=== PATIENT | male | born 1940 | race Caucasian/White ===

== ENCOUNTER 2017-08-30 17:55 | Inpatient (IN) | payer OTHER, BC ==
[2017-08-30] VITALS (12 sets, daily range): BP systolic 77–100; BP diastolic 49–76
[~2017-08-30] VITALS: Ht 185.4 cm; Wt 89.7 kg
--- NOTE | ~2017-08-30 | 2DMMODE ---
[address] [address] 2 D/M-MODE ECHOCARDIOGRAM Name: FRIDA RICHARDS Dre Room #: 244-P ADM IN M.R.#: [id number] Admission: 08/30/17 Attend Phys: Shant Walker, Discharge: Date of : 42 Date of Service: 09/01/17 1231 Report #: [id number] THIS REPORT FOR: //name// APPROVED REPORT Study performed: 09/01/2017 08:05:46 EXAM: Limited 2D, Doppler Patient Location: ICU Room #: [facility] Status: routine BSA: 2.21 BP: 96/60 mmHg Other Information Study Quality: Adequate Technically limited study due to inability to position patient. Indications Pericardial Effusion Re-evaluate pericardial effusion, previous echo 08/31/2017 2D Dimensions IVC: 29.00 mm Left Ventricle The left ventricle is normal size. There is normal left ventricular wall thickness. The left ventricular systolic function is normal. The left ventricular ejection fraction is within the normal range. Right Ventricle The right ventricle is normal size. The right ventricular systolic function is normal. Atria Left atrium is mildly dilated. Right atrium is mildly dilated. Aortic Valve Aortic valve appears calcified. Mild aortic stenosis. Mitral Valve The mitral valve is normal in structure. [address] [address] 2 D/M-MODE ECHOCARDIOGRAM Name: FRIDA RICHARDS Room #: 244-P ADM IN M.R.#: [id number] Admission: 08/30/17 Attend Phys: Shant Walker, Discharge: Date of : 42 Date of Service: 09/01/17 1231 Report #: [id number] Tricuspid Valve The tricuspid valve is normal in structure. Pulmonic Valve The pulmonary valve is normal in structure. Great Vessels The aortic root is normal in size. The IVC is dilated. Pericardium There is no pericardial effusion. Pleural effusion is noted. <Conclusion> The left ventricular systolic function is normal. The left ventricular ejection fraction is within the normal range. Left atrium is mildly dilated. Right atrium is mildly dilated. Mild aortic stenosis. There is no pericardial effusion. Pleural effusion is noted. <ELECTRONICALLY SIGNED> By: Nickolas Quevedo MD, FACC 09/01/17 123 123 30 Nickolas Quevedo MD, FACC /INF
--- NOTE | ~2017-08-30 | EKG ---
[address] [address] ELECTROCARDIOGRAM REPORT Name: MAURICECHARLENEMartha Erickson Room #: 244-P ADM IN M.R.#: [id number] Admission: 08/30/17 Attend Phys: Shant Walker DO Discharge: Date of : 42 Report #: [id number] THIS REPORT FOR: //name// [facility] Test Date: 2017-09-14 Test Time: 05:50:20 Pat Name: FRIDA RICHARDS Department: Room: 244 P Gender: M Manager Surgery: JONATAN : 1940 Requested By: Nickolas Quevedo Order Number: [id number] MD: Quinton He Measurements Intervals Brooks Rate: 88 P: [place]: QRS: 73 QRSD: 115 T: 267 QT: 329 QTc: 398 Interpretive Statements Atrial fibrillation Incomplete right bundle branch block Low voltage, extremity leads Nonspecific T abnormalities, lateral leads Baseline wander in lead(s) V2 Compared to ECG 09/13/2017 06:17:15 Incomplete right bundle-branch block now present Low QRS voltage now present T-wave abnormality now present Intraventricular conduction delay no longer present Myocardial infarct finding no longer present Electronically Signed On 09-14-2017 8:18:59 DOOR ASSEMBLER by Quinton He [email or web address] <ELECTRONICALLY SIGNED> By: Quinton He MD 09/14/17817 0550 0550 Quinton He MD /EPI
--- NOTE | ~2017-08-30 | O ---
[facility] [place] [address] OPERATIVE REPORT Name: FRIDA RICHARDS Room #: 217-P [facility] IN ..#: [id number] Admission: 08/30/17 Attend Phys: Shant Walker DO Discharge: 09/19/17 Date of : 42 Report #: [id number] THIS REPORT FOR: //name// CC: Shant Aponte DATE OF SERVICE: 08/31/2017 PREOPERATIVE DIAGNOSIS: Pericardial effusion. FINAL DIAGNOSIS: Pericardial effusion, large. OPERATIVE PROCEDURE PERFORMED: Percutaneous pericardial drain placement. SURGEON: Jefferson Velazquez M.D. ICE CREAM MIXER: None. ANESTHESIA: Local 1% lidocaine without epinephrine, 10 mL. SPECIMENS REMOVED: Pericardial fluid approximately 300 mL. COMPLICATIONS: None noted. OPERATIVE INDICATIONS: The patient is a very pleasant elderly gentleman in his 70s who was transferred over from the hospital in [facility], with a large pericardial effusion. There were concerns of tamponade. The patient is very sick with multiple illnesses, elevated INR. He was felt to be of high operative risk. Therefore, we decided to perform a percutaneous drain placement in the ICU. PROCEDURE SUMMARY: With the patient lying supine in the ICU bed, his abdomen was prepped and draped in sterile fashion with chlorhexidine. I first numbed up the skin and subcutaneous tissues and the upper abdominal wall in the midline. I then used a needle directed to the left-sided nipple at an angle of 45 degrees and aspirated dark fluid that was non-clotting. I placed a J-wire through this, dilated this tract and then placed a triple-lumen catheter into the pericardial space. I immediately removed 300 mL of fluid utilizing a syringe. The patient's blood pressure improved to 110/70 after removal of the fluid. Heart rate also decreased from the 90s to the low 80s. The drain was sutured to the skin and placed to a vacuum system. Sterile dressing was applied. The procedure was completed. The patient was maintained in the ICU. <ELECTRONICALLY SIGNED> By: Jefferson Velazquez MD 01/04/18 0630 1245 1301 Jefferson Velazquez MD /nt
--- NOTE | ~2017-08-30 | O ---
[facility] [place] [address] OPERATIVE REPORT Name: FRIDA RICHARDS Room #: 217-P DIS IN M.R.#: [id number] Admission: 08/30/17 Attend Phys: Shant Walker DO Discharge: 09/19/17 Date of : 42 Report #: [id number] THIS REPORT FOR: //name// CC: Shant Aponte DATE OF SERVICE: 08/31/2017 ADDENDUM This is a note that had been prior dictated, it is dictation #[id number]. The date of service is 08/31/2017, not 09/27. <ELECTRONICALLY SIGNED> By: Jefferson Velazquez MD 01/04/18 0630 1612 1644 Jefferson Velazquez MD /nt
--- NOTE | ~2017-08-30 | 2DMMODE ---
[facility] [address] [place] [address] 2 D/M-MODE ECHOCARDIOGRAM Name: MAURICEFRIDA W Room #: 244-P [facility] IN ..#: [id number] Admission: 08/30/17 Attend Phys: Shant Walker, Discharge: Date of : 42 Date of Service: 08/31/17 1239 Report #: [id number] THIS REPORT FOR: //name// APPROVED REPORT Study performed: 08/31/2017 11:18:55 EXAM: Comprehensive 2D, Doppler, and color-flow Echocardiogram Patient Location: ICU Room #: [facility] Status: stat BSA: 2.21 HR: 91 bpm BP: 88/58 mmHg Other Information Study Quality: Adequate Indications Dyspnea Pericardial Effusion 2D Dimensions LVOT Diam: 19.63 (18-24mm) Ascending Ao: 35.70 (22-36mm) IVC: 25.00 mm Pulmonary Valve PV Peak Filemon.: 0.79 m/s PV Peak Gr.: 2.50 mmHg Tricuspid Valve TR Peak Filemon.: 3.09 m/s TR Peak Gr.: 38.24 mmHg PA Pressure: 48.00 mmHg Left Ventricle The left ventricle is normal size. There is normal left ventricular wall thickness. Left ventricular systolic function is hyperdynamic. LVEF is >70%. Grade I - abnormal relaxation pattern. Right Ventricle Right ventricle is at the upper limits of normal. The right ventricle is hyperdynamic. Atria [facility] [address] [place] [address] 2 D/M-MODE ECHOCARDIOGRAM Name: FRIDA RICHARDS Room #: 244-P [facility] IN M.R.#: [id number] Admission: 08/30/17 Attend Phys: Shant Walker, Discharge: Date of : 42 Date of Service: 08/31/17 1239 Report #: [id number] Left atrium is at the upper limits of normal. Right atrium is dilated. Aortic Valve The aortic valve is normal in structure. Aortic valve is calcified. No aortic regurgitation is present. Mild aortic stenosis. Mitral Valve The mitral valve is normal in structure. There is mitral annular calcification. There is no mitral valve regurgitation noted. No evidence of mitral valve stenosis. Tricuspid Valve The tricuspid valve is normal in structure. There is mild tricuspid regurgitation. Estimated PAP 48 mmHg. There is moderate pulmonary hypertension. Pulmonic Valve The pulmonary valve is normal in structure. There is no pulmonic valvular regurgitation. Great Vessels The aortic root is normal in size. IVC is dilated and collapses <50% with inspiration. Pericardium Moderate to large No echo indications of pericardial tamponade. circumferential pericardial effusion. <Conclusion> The left ventricle is normal size. Left ventricular systolic function is hyperdynamic. LVEF is >70%. Right ventricle is at the upper limits of normal. The right ventricle is hyperdynamic. Left atrium is at the upper limits of normal. Right atrium is dilated. The aortic valve is normal in structure. Aortic valve is calcified. Mild aortic stenosis. The mitral valve is normal in structure. There is mitral annular calcification. The tricuspid valve is normal in structure. There is mild tricuspid regurgitation. Estimated PAP 48 mmHg. There is moderate pulmonary hypertension. The pulmonary valve is normal in structure. [facility] [address] [place] [address] 2 D/M-MODE ECHOCARDIOGRAM Name: FRIDA RICHARDS Room #: [facility] IN M.R.#: [id number] Admission: 08/30/17 Attend Phys: Shant Walker, Discharge: Date of : 42 Date of Service: 08/31/17 1239 Report #: [id number] Moderate to large No echo indications of pericardial tamponade. circumferential pericardial effusion. <ELECTRONICALLY SIGNED> By: Murray Grande MD 08/31/17 1239 1239 123 Murray Grande MD /INF
--- NOTE | ~2017-08-30 | S ---
[facility] [place] [place] [address] SURGICAL PATH RPT PROCEDURE Name: JEF RICHARDS Room #: 244-P ADM IN M.R.#: [id number] Admission: 08/30/17 Date of : 42 Discharge: Report #: [id number] Path Case #: [id number] PATHOLOGY REPORT COLLECTION DATE: 09/09/2017 RECEIVED DATE: 09/09/2017 SUBMITTING PHYS: Dr. Yeyo Salgado OTHER PHYS: Dr. Reagan Walker ADDENDUM REPORT (Order Date: 09/13/2017 10:48) ADDENDUM COMMENT: Addendum is issued subsequently revealing well-controlled stains. Block A1 Special stain GMS - No definite fungal elements identified. *CMV immunohistochemical stain - No definite CMV identified. *HSV1 immunohistochemical stain - No definite herpes identified. The originally rendered diagnosis remains unchanged. (IUV:mml; 09/13/2017) *This test was developed and its performance characteristics determined by [facility]. It has not been cleared or approved by the U.S. Food and Drug Administration. The FDA has determined that such clearance or approval is not necessary. This test is used for clinical purposes. It should not be regarded as investigational or for research. This laboratory is certified under the Clinical Laboratory Improvement Amendments of 1988 (CLIA) as qualified to perform high complexity clinical laboratory testing. Professional services performed by [facility] at [facility] [address] [place] [address] Technical services performed by [facility] at [address] [place] [address], [address] [place] [address]. ELECTRONICALLY SIGNED BY: Genie Gonzalez M.D. DATE/TIME:09/13/2017 11:00 SPECIMEN(S) RECEIVED: A.Bx of esophageal ulcer * * * * * * * * * * * * FINAL DIAGNOSIS: [address] [address] SURGICAL PATH RPT PROCEDURE Name: JEF RICHRADS Room #: 244-P [facility] IN [facility]#: [id number] Admission: 08/30/17 Date of : 42 Discharge: Report #: [id number] Path Case #: [id number] Squamous mucosa, esophageal ulcer, endoscopic biopsy: - Marked active esophagitis with extensive ulceration and granulation tissue. - Negative for malignancy. COMMENT: Immunohistochemical stains (for CMV and HSV 1) as well as a fungal special stain are ordered on block A1. The results of these will be reported in an addendum to follow. (IUV:db; 09/12/2017) *This test was developed and its performance characteristics determined by [facility]. It has not been cleared or approved by the U.S. Food and Drug Administration. The FDA has determined that such clearance or approval is not necessary. This test is used for clinical purposes. It should not be regarded as investigational or for research. This laboratory is certified under the Clinical Laboratory Improvement Amendments of 1988 (CLIA) as qualified to perform high complexity clinical laboratory testing. PATHOLOGIST: Genie Gonzalez M.D. REPORT ELECTRONICALLY SIGNED BY: Genie Gonzalez M.D. DATE/TIME: 09/12/2017 14:01 * * * * * * * * * * * * GROSS PATHOLOGY: Received in formalin labeled "Jef Richards, BX of esophageal ulcer," are multiple (more than 5) segments of allen soft tissue measuring 1.3 x 0.6 x 0.2 cm in aggregate dimensions. The specimen is submitted entirely in cassette A1. (SDY; 09/09/2017) CLINICAL HISTORY: Anemia, melena Esophageal ulcers INITIAL CPT CODE(S): A; 58217, 72289, 68601, 46690 Professional services performed by [facility] at [address] , [place] [address] Technical services performed by [facility] at [address] [place] [address], [place] [address]. [facility] [address] [place] [address] SURGICAL PATH RPT PROCEDURE Name: JEF RICHARDS Room #: 244-P [facility] IN .R.#: [id number] Admission: 08/30/17 Date of : 42 Discharge: Report #: [id number] Path Case #: [id number] [facility] [address] [address] PHONE: [phone] DIRECTOR: Javier Farooq M.D. * * * END OF REPORT * * *
--- NOTE | ~2017-08-30 | EKG ---
[address] [address] ELECTROCARDIOGRAM REPORT Name: FRIDA RICHARDS Room #: 244-P ADM IN M.R.#: [id number] Admission: 08/30/17 Attend Phys: Shant Walker DO Discharge: Date of : 42 Report #: [id number] THIS REPORT FOR: //name// [facility] Test Date: 2017-09-13 Test Time: 06:17:15 Pat Name: FRIDA RICHARDS Department: Room: 244 P Gender: M Motor Vehicle Parts Interpreter: JONATAN : 1940 Requested By: Nickolas Quevedo Order Number: [id number] MD: Bola Hansen Measurements Intervals Wilkinson Rate: 93 P: [place]: QRS: 91 QRSD: 118 T: -88 QT: 470 QTc: 585 Interpretive Statements Atrial fibrillation Nonspecific intraventricular conduction delay Anterolateral infarct, age indeterminate Baseline wander in lead(s) V2,V6 No significant change was found Electronically Signed On 09-13-2017 9:07:56 INDUSTRIAL TRACTOR DRIVER by Bola Hansen [email or web address] <ELECTRONICALLY SIGNED> By: Bola Hansen MD, [facility] 09/13/17906 6 6 Bola Hansen MD, [facility] /EPI
--- NOTE | ~2017-08-30 | CNG ---
[facility] [place] [address] CYTO-NONGYN REPORT PROCEDURE Name: JEF RICHARDS Room #: 244-P ADM IN M.R.#: [id number] Admission: 08/30/17 Date of : 42 Discharge: Report #: [id number] Path Case #: [id number] CYTOPATHOLOGY REPORT COLLECTION DATE: 09/06/2017 RECEIVED DATE: 09/06/2017 SUBMITTING PHYS: Dr. Lucy Wills OTHER PHYS: Dr. Brad Aponte CLINICAL HISTORY: Pericardial effusion, ANISHA SPECIMEN(S) RECEIVED: A.Pleural fluid * * * * * * * * * * * * FINAL DIAGNOSIS: Pleural fluid: - No malignant epithelial cells identified. - Mesothelial cells and scattered predominantly chronic inflammatory cells identified. (see comment) COMMENT: Properly controlled immunohistochemical stains are performed on the cell block. (Block A1) Calretinin: highlights the scattered mesothelial cells CD68: stains scattered histiocytes Juan-EP4: non-reactive (CLW:mgr; 09/08/2017) PATHOLOGIST: Juliet Martini M.D. REPORT ELECTRONICALLY SIGNED BY: Juliet Martini M.D. DATE/TIME: 09/08/2017 12:24 * * * * * * * * * * * * GROSS PATHOLOGY: Pleural fluid: - The specimen is submitted unfixed, labeled "Jef Richards". Received by the Cytology Department is ten mL of clear yellow fluid. One ThinPrep slide and a formalin fixed cell block were prepared. (lg09.06.2017) TEST AUTOMATION ARCHITECT(S): ELIOT Ramirez[facility] INITIAL CPT CODE(S): A; 65278, 92513, 40559, 52762, 46[address] Professional services performed by [facility] at [facility] [address] [place] [address] CYTO-NONGYN REPORT PROCEDURE Name: MAURICEJEF W Room #: 244-P ADM IN M.R.#: [id number] Admission: 08/30/17 Date of : 42 Discharge: Report #: [id number] Path Case #: [id number] [facility] [address] , [place] [address] Technical services performed by [facility] at [address] [place] [address], [address], [place] [address]. [address], [address] [place] [address] PHONE: [phone] DIRECTOR: Javier Farooq M.D. * * * END OF REPORT * * *
--- NOTE | ~2017-08-30 | HC ---
[facility] [place] [address] CONSULTATION Name: FRIDA RICHARDS Room #: 244-P ADM IN M.R.#: [id number] Admission: 08/30/17 Attend Phys: Shant Walker DO Discharge: Date of : 42 Report #: [id number] THIS REPORT FOR: //name// CC: Shant Aponte HISTORY OF PRESENT ILLNESS: The patient is currently in acute mental status changes, unable to provide me with history. Details of the history are not available, so most of the information obtained here were from the medical records. This is a 77-year-old with past medical history of diabetes mellitus, AFib, hypertension, non-Hodgkin's lymphoma status post chemo and radiotherapy. The details of his chemotherapy are not available. The patient had presented to an outside facility with shortness of breath. Family reported to the admitting team that he has been lethargic. They also reported that he had been retaining some fluids. He was initiated on hemodialysis in the [facility] facility. He was transferred to our facility for further evaluation and management. Unfortunately, the patient currently has an acute mental status changes with hemodynamic instability. PAST MEDICAL HISTORY: Extensive and includes the following. This is obtained from the chart. 1. Status post tonsillectomy. 2. Non-Hodgkin's lymphoma in 1986. 3. Status post cardiac ablation. 4. Carpal tunnel surgery. 5. Hernial repair. 6. Cataracts. 7. Gastrectomy. 8. AFib. 9. No known chronic kidney disease per the family when they brought the patient to the Emergency Room. FAMILY HISTORY: Unobtainable given the patient's mental status. SOCIAL HISTORY: Unobtainable given the patient's mental status. REVIEW OF SYSTEMS: Unobtainable given the patient's mental status. MEDICATIONS: Reported medications: 1. Insulin. 2. Midodrine. 3. Calcium acetate. 4. Aspirin. 5. Promethazine. 6. Melatonin. [address] [address] CONSULTATION Name: FRIDA RICHARDS Room #: 244-P [facility].#: [id number] Admission: 08/30/17 Attend Phys: Shant Walker DO Discharge: Date of : 42 Report #: [id number] PHYSICAL EXAMINATION: GENERAL: The patient is disoriented to time, place, and person. VITAL SIGNS: Blood pressure 85/56. HEAD AND NECK: Elevated jugular venous pressure. CHEST: Rhonchi bilaterally with decreased air entry. CARDIOVASCULAR: I could not appreciate a rub. ABDOMEN: Soft, nontender. LOWER EXTREMITIES: No edema. LABORATORY VALUES: Reviewed. 1. White blood cell count 27.5. 2. Blood gas pending. 3. Chemistry: Sodium 135, potassium 5.9, BUN 78, creatinine 4.4, phosphorus 7.9, AST 1343. 4. ALT 1033. IMAGES: None. ASSESSMENT, IMPRESSION AND PLAN: 1. Acute kidney injury. 2. Hyperkalemia. 3. Sepsis. 4. Hypertension. 5. Pericardial effusion. 6. Coagulopathy. 7. I need to obtain his [facility] [facility] medical record and review. 8. As for now, the patient will need to move to the ICU. 9. Obtain stat labs, obtain stat chest x-ray, obtain septic workup. 10. Appropriate antibiotics. 11. Treat the hyperkalemia. 12. We will discuss with the family and initiate hemodialysis. 13. Stat cardiothoracic surgery consultation. 14. Start cardiac consultation. <ELECTRONICALLY SIGNED> By: Edward Smith MD 09/02/17 0952 1009 1053 Edward Smith MD /nt
--- NOTE | ~2017-08-30 | HC ---
[facility] [place] [address] CONSULTATION Name: FRIDA RICHARDS Room #: 244-P ADM IN M.R.#: [id number] Admission: 08/30/17 Attend Phys: Shant Walker DO Discharge: Date of : 41 Report #: [id number] THIS REPORT FOR: //name// CC: Dr. Amador Hart MD ____ ___ DATE OF SERVICE: 09/04/2017 REASON FOR CONSULTATION: The patient is a 77-year-old male in the intensive care unit with complex medical issues with black stools. HISTORY OF PRESENT ILLNESS: This 77-year-old male was initially admitted to [facility], transferred to [facility]. There are limited records from [facility] at this time. The patient was presented to the Emergency Room at [facility] with shortness of breath, fever and chills at home. He had been empirically started on Cipro. Apparently evaluated by his primary physician and found to have evidence of renal failure and presented to [facility]. He was treated for sepsis secondary to left lower lobe pneumonia as well as acute tubular necrosis, diabetes, metformin-induced lactic acidosis as well as atrial fibrillation, encephalopathy and hyperkalemia. He was found to have a large pericardial effusion and ultimately transferred to [facility] for cardiovascular intervention. Here at [facility], he has undergone pericardial drains placement and 300 mL of fluid was removed. The drain has subsequently been removed. On echocardiogram, apparently, there is no evidence of tamponade. His course has been complicated and he is currently on pressors. He has had periods of hypotension and remains on his pressors. He has been in intensive care unit, dialysis catheter has been placed and he has undergone CRRT and plans are for further CRRT with ultrafiltration tomorrow. His creatinine was as high as 4.6 and is now down to 2.8. His BUN was high as 81 and today is down to 55. When he presented, CT scan of the chest and abdomen was obtained. The CT reveals evidence of a previous right hemicolectomy. However, the patient is unable to give me any information about that surgery. There is a known history of Hodgkin disease with previous radiation, but I do not have specifics. The records also indicate that he has had part of his stomach removed for a tumor, but again the patient is able to verify that. On the initial CT, he had a large amount of stool in the rectum suggestive of constipation. I spoke with the nursing staff today and they report that stools started moving last night and he has been having black liquidy material per rectum. The stool is [facility] [address] [place] [address] CONSULTATION Name: FRIDA RICHARDS Dre Room #: 244-P [facility] IN M.R.#: [id number] Admission: 08/30/17 Attend Phys: Shant Walker DO Discharge: Date of : 41 Report #: [id number] positive. He presented on 08/31 with hemoglobin 11, it dropped to 9.7 yesterday and is 9.4 today. Again, the patient is able to give little information. However, I was able to osborn from him that he does use nonsteroidals from time to time. He may have some heartburn problems, but it is not clear to me whether he had been on any medications in the past for reflux disease. PAST MEDICAL HISTORY: Diabetes, high blood pressure, atrial fibrillation status post ablation, benign prostatic hypertrophy, non-Hodgkin lymphoma status post chemotherapy and radiation therapy, degenerative joint disease. 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 ALLERGIES: IODINATED CONTRAST, METOPROLOL REPORTED. CURRENT MEDICATIONS: Digoxin, albuterol, fentanyl, vancomycin, Zosyn, simethicone, nystatin, norepinephrine drip, Humalog insulin, tramadol, ondansetron. FAMILY HISTORY: Unobtainable. SOCIAL HISTORY: Unobtainable. REVIEW OF SYSTEMS: Unobtainable due to his altered mental status. PHYSICAL EXAMINATION: GENERAL: The patient is a well-developed, markedly edematous male who is very drowsy, appears weak, in no acute distress. He does answer to some questions, but information provided is limited. It is noted he is on a norepinephrine drip. VITAL SIGNS: Currently, blood pressure 86/40, heart rate of 90. HEENT: Anicteric at this time. Pupils equal and round. Oropharynx, dry membranes, clear. NECK: Supple, no thyromegaly. CHEST: Clear anteriorly. HEART: Regular rate and rhythm. S1, S2. ABDOMEN: Healed scars on abdomen that is soft, nontender without hepatosplenomegaly or masses. Bowel sounds are normal. RECTAL: Not done at this time. EXTREMITIES: He has evidence of marked anasarca of his extremities. LABORATORY DATA: Sodium 135, potassium 4.1, chloride 100, CO2 of 28, BUN 55, [address] [address] CONSULTATION Name: FRIDA RICHARDS Room #: 244-P [facility] IN [facility].#: [id number] Admission: 08/30/17 Attend Phys: Shant Walker DO Discharge: Date of : 41 Report #: [id number] creatinine 2.8, blood sugar 327. AST was 1343 four days ago, down to 102 today; bilirubin 0.8, down from 2.3; alkaline phosphatase 347, down from 378; ALT 316, down from 1033. Albumin of 1.7. Ammonia 10. Lactic acid 1.5. INR was 2, has dropped to 1.4. White count was 27,500 and dropped to 11.2; hemoglobin 9.4, down from 11; platelet count was dropped to 69,000 yesterday of 81,000 today. Hepatitis B surface antigen negative. C. diff was negative. RADIOLOGIC STUDIES: Chest x-ray with infiltrates and effusions. CT again reveals evidence of a right hemicolectomy. There is also a suggestion of mild diffuse colitis. However, it is noted he has diffuse anasarca. There is a small amount of ascites, moderate pleural effusions. ASSESSMENT: 1. Anemia with evidence of gastrointestinal bleeding. 2. Sepsis. 3. Hypotension, on pressors. 4. Pericardial effusion, status post drainage. 5. Acute kidney injury. 6. Diabetes. 7. History of right hemicolectomy. 8. Questionable history of gastrectomy for gastric tumor. 9. Atrial fibrillation. 10. Pneumonia. 11. Shock liver. COMMENT: A very complex patient with septic like picture and pericardial effusion who continues to require use of pressors. He has had a drop in hemoglobin and has had black stools. He has a fecal management system in and there is a small amount of liquidy black material in the tube. There may have been some use of nonsteroidals in the past. He may have had some reflux disease in the past too. I do not know much about his radiation therapy, so vascular ectasias of the GI tract is a possibility. However, with his hypotension, renal failure and anasarca, he is certainly at risk for mucosal ischemia, essentially anywhere in his GI tract. I am not certain that he has colitis as noted on CT. Rather, the changes may reflect edema related to his anasarca. RECOMMENDATIONS: 1. We will place him on H2 suzette. 2. Monitor hemoglobin. 3. Place endoscopic evaluation on hold at this time as he is at high risk with his hypotension. However, would proceed urgently depending on clinical course. 4. At some point in time, upper endoscopy for further evaluation of his bleeding source. 5. Consider colonoscopy in the future depending on clinical course. [address] [address] CONSULTATION Name: FRIDA RICHARDS Room #: 244-P [facility] IN .R.#: [id number] Admission: 08/30/17 Attend Phys: Shant Walker DO Discharge: Date of : 41 Report #: [id number] 6. Continue to monitor liver function studies, which are improving. 7. Continue tube feedings. <ELECTRONICALLY SIGNED> By: Yeyo Salgado MD 09/05/17 1631 [id number] Yeyo Salgado MD /nt
--- NOTE | ~2017-08-30 | P ---
[facility] [place] [address] [place] [address] PROCEDURE REPORT Name: FRIDA RICHARDS Room #: 244-P ADM IN M.R.#: [id number] Admission: 08/30/17 Attend Phys: Shant Walker DO Discharge: Date of : 41 Report #: [id number] THIS REPORT FOR: //name// CC: Emilie Quevedo MD [facility] Shant Aponte DATE OF SERVICE: 09/13/2017 PROCEDURE PERFORMED: Upper endoscopy with bleeding control. HISTORY OF PRESENT ILLNESS: The patient is a 77-year-old male with multiple medical problems with a history of sepsis, renal failure, diabetes, left lower lobe pneumonia, atrial fib, encephalopathy. He is found to have a large pericardial effusion and underwent a pericardial drain placement. Dr. Salgado, my partner was consulted for upper GI bleed on 09/04/2017 and performed an upper endoscopy on 09/09/2017 in which extensive ulcerations throughout the esophagus were noted. The patient was placed on PPI therapy. He was not able to take p.o. since that time. His hemoglobin has been stable; however, and he has been tolerating tube feeds today; however, he had a large melanotic stool and a drop in his hemoglobin. Hemoglobin dropped from 7.5 this morning to 5.1 at 1400 today. The patient underwent a dialysis catheter placement in earlier today. He is now receiving the first of 2 units. The plan is for an upper endoscopy for further evaluation of likely upper GI bleed. He was switched to a Protonix drip and his tube feeds have been held for the last 3-1/2 hours. DESCRIPTION OF PROCEDURE: The risks and benefits of the procedure were explained to the patient's family, those risks including but not limited to bleeding, perforation, the risk of sedation. He understood these risks and gave informed consent. The procedure was performed in the ICU using conscious sedation with Versed and fentanyl, total of 2 of Versed and 50 of fentanyl. The Dobbhoff was left in place and using a standard [employer] upper endoscope, the scope was placed to the patient's mouth and advanced under direct vision through the esophagus, stomach and into the gastric antrum in which bright red blood was noted near the pylorus. The Dobbhoff tube was through the pylorus. As I entered, the duodenal bulb in first portion of the duodenum, it was obvious the tip of the Dobbhoff was causing trauma and an ulceration with a fresh clot and bright red blood in this area in the inferior portion of the duodenum. I suspect this is from trauma from the tip of the Dobbhoff. Because of this, the Dobbhoff was completely removed. Next, looking at the clot it appeared it was too wide base in order to place an endoclip. It was also I felt too high risk to cauterize as this may increase bleeding and there was no active bleeding at [address] [address] PROCEDURE REPORT Name: MAURICECHARLENEMartha Erickson Room #: 244-P [facility] IN M.R.#: [id number] Admission: 08/30/17 Attend Phys: Shant Walker DO Discharge: Date of : 41 Report #: [id number] this time. Therefore, I opted to inject the edge of the area with a total of 3 mL of epinephrine. There was no bleeding after injection. The remaining duodenum was normal. The remaining stomach, gastric mucosa was normal. As the scope was slowly withdrawn through the esophagus, there was significant improvement, although there are still some ulcerations. There was no active bleeding and it appears to be healing quite well in the esophagus. The scope was then withdrawn and the procedure terminated. The patient tolerated the procedure well. IMPRESSION: 1. Fresh clot and ulcer in the distal duodenal bulb due to Dobbhoff trauma most likely as the tip was right in this area at the beginning of endoscopy. The Dobbhoff has since been removed. Area was treated with 3 mL of epinephrine, there was no active bleeding. 2. Esophagitis, but improved. RECOMMENDATIONS: 1. Continue to leave Dobbhoff out at this time. 2. Continue Protonix drip. 3. Continue to monitor hemoglobin closely. 4. If the patient has significant recurrent GI bleed, may need to consider surgical options or Interventional Radiology. Thank you for allowing me to participate in his care. <ELECTRONICALLY SIGNED> By: Gilmer Blanca MD 09/16/17 1359 06 1055 Gilmer Blanca MD /nt
--- NOTE | ~2017-08-30 | EKG ---
[place] [address] [facility] [place] [address] ELECTROCARDIOGRAM REPORT Name: FRIDA RICHARDS Room #: 244-P ADM IN M.R.#: [id number] Admission: 08/30/17 Attend Phys: Shant Walker DO Discharge: Date of : 41 Report #: [id number] THIS REPORT FOR: //name// [facility] Test Date: 2017-09-01 Test Time: 06:43:42 Pat Name: FRIDA RICHARDS Department: Room: 244 P Gender: M Safety Consultant: JONATAN : 1940 Requested By: Nickolas Quevedo Order Number: [id number] MD: Bola Hansen Measurements Intervals [place] Rate: 96 P: -46 NH: 146 QRS: 65 QRSD: 111 T: 269 QT: 295 QTc: 373 Interpretive Statements Sinus or ectopic atrial rhythm with first-degree AV block Low voltage, extremity leads Nonspecific ST and T wave abnormality Baseline wander in lead(s) V1 No previous ECG available for comparison Electronically Signed On 09-01-2017 8:23:46 CADDYMASTER by Bola Hansen [email or web address] <ELECTRONICALLY SIGNED> By: Bola Hansen MD, [facility] 09/01/17 0823 0643 0643 Bola Hansen MD, [facility] /EPI
--- NOTE | ~2017-08-30 | HC ---
[facility] [address] [place] [address] CONSULTATION Name: FRIDA RICHARDS Room #: 244-P ADM IN M.R.#: [id number] Admission: 08/30/17 Attend Phys: Shant Walker DO Discharge: Date of : 41 Report #: [id number] THIS REPORT FOR: //name// CC: Shant Aponte DATE OF SERVICE: 09/05/2017 HISTORY OF PRESENT ILLNESS: This patient is seen at the request of the hospitalist regarding worsening thrombocytopenia. This 77-year-old white male was transferred from [facility] to [facility] with the findings of a large pericardial effusion. He is currently on vasopressors for ongoing shock related to earlier sepsis. In regard to his thrombocytopenia, his is unaware of this ever being a previous issue, though he does have a history of prior radiation and chemotherapy for non-Hodgkin's lymphoma, but they were unsure of the details of that history. He remains on antibiotics in the ICU and is alert and responsive, but not a completely trusted historian. He has had recent dark stools and hemoglobin has remained stable, it is lower than prior to transfer. PAST MEDICAL HISTORY: Positive for medically managed hypertension, atrial fibrillation, diabetes and prostatic hypertrophy. He has degenerative joint disease. He has undergone previous right hemicolectomy and gastrectomy for GI stromal tumor. ALLERGIES: He is allergic to IODINE CONTRAST MATERIALS and METOPROLOL by history. MEDICATIONS: As listed on the MFR. FAMILY HISTORY: Noncontributory. SOCIAL HISTORY: Not contributory. REVIEW OF SYSTEMS: Negative for bleeding from any IV sites. His reports he has not had any gum bleeding or nosebleeds. He has always bruised easily, but takes aspirin and Naprosyn. PHYSICAL EXAMINATION: GENERAL: Shows a poorly responsive white male in the ICU. He is currently undergoing dialysis and is on pressors. VITAL SIGNS: Blood pressure is 90/50. HEENT: Normocephalic. [address] [address] CONSULTATION Name: FRIDA RICHARDS Room #: 244-P [facility] IN ..#: [id number] Admission: 08/30/17 Attend Phys: Shant Walker DO Discharge: Date of : 41 Report #: [id number] NECK: Supple. CHEST: Clear. CARDIOVASCULAR: Normal S1, S2. ABDOMEN: Shows previous healed incisions. He did not have a palpable spleen. EXTREMITIES: Show marked edema. SKIN: Normal turgor. LABORATORY DATA: Showed elevated creatinine of 3 with a platelet count of 78,000. PT, PTT, fibrinogen are all normal. ASSESSMENT: Mild thrombocytopenia. PLAN: He is not in need of current platelet transfusions unless he has obvious ongoing bleeding. He will be monitored and does not have evidence of DIC at present. I suspect his thrombocytopenia on the basis of his sepsis and shock. LDH is pending as well as review of peripheral blood smear regarding possible TTP, which I doubt. Thanks for asking us to be involved in his care and allowing me to see him in consultation. <ELECTRONICALLY SIGNED> By: Ariadna Pisano MD 09/06/17 1308 1621 21 Ariadna Pisano MD /nt
--- NOTE | ~2017-08-30 | EKG ---
[address] [address] ELECTROCARDIOGRAM REPORT Name: CHARLENE RICHARDSMartha Erickson Room #: 244-P ADM IN M.R.#: [id number] Admission: 08/30/17 Attend Phys: Shant Walker DO Discharge: Date of : 41 Report #: [id number] THIS REPORT FOR: //name// [facility] Test Date: 2017-09-02 Test Time: 06:40:09 Pat Name: FRIDA RICHARDS Department: Room: 244 P Gender: M Usability Engineer: JONATAN : 1940 Requested By: Nickolas Quevedo Order Number: [id number] MD: Quinton He Measurements Intervals [place] Rate: 90 P: IA: QRS: 59 QRSD: 122 T: -49 QT: 384 QTc: 470 Interpretive Statements Atrial fibrillation Right bundle branch block Baseline wander in lead(s) V5 Compared to ECG 09/01/2017 06:43:42 Right bundle-branch block now present Ectopic atrial rhythm no longer present ST (T wave) deviation no longer present Electronically Signed On 09-02-2017 9:06:15 [employer]MINISTR[employer] by Quinton He [email or web address] <ELECTRONICALLY SIGNED> By: Quinton He MD 09/02/17 0906 0640 Quinton He MD /EPI
--- NOTE | ~2017-08-30 | HC ---
[facility] [place] [address] [place] [address] CONSULTATION Name: FRIDA RICHARDS Room #: 244-P [facility] IN M.R.#: [id number] Admission: 08/30/17 Attend Phys: Shant Walker DO Discharge: Date of : 41 Report #: [id number] THIS REPORT FOR: //name// CC: Shant Kirk Aponte DATE OF SERVICE: 08/31/2017 ATTENDING PHYSICIAN: Shant Walker DO REASON FOR CONSULTATION: Leukocytosis. HISTORY OF PRESENT ILLNESS: The patient is a 77-year-old white man initially hospitalized at [facility] where he was diagnosed to have acute renal failure requiring hemodialysis. During that hospitalization, he was also diagnosed to have lactic acidosis, which was thought to be secondary to metformin. The patient was found to have a rather large pericardial effusion and transferred to [facility] for pericardial window. The patient is extremely debilitated, most of the information on this patient is gathered from review of records from [facility] as well as discussion with the patient's . The patient had required hemodialysis for several days, almost on daily basis, temporarily stopped on the weekend due to clotting of the dialysis catheter. PAST MEDICAL HISTORY: The patient was diagnosed in the s to have a non-Hodgkin lymphoma. 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 Hermilo Yu. His past medical history also positive for hypertension, diabetes mellitus type 2, and atrial fibrillation. Back surgery in the 80s resulting in temporary paraparesis and paraplegia. History of prostate surgery as well. The patient was found to have acute renal failure during hospitalization at [facility], significant hyperkalemia, mildly abnormal liver function tests with an SGOT of 554, SGPT 467, alkaline phosphatase of 407, an LDH of 499, the bilirubin was only 1.4 (by the way, liver function tests significantly worse here at [facility] today). The patient has leukocytosis at [facility] that has been worsening of lately with a white blood cell count of 27,100 yesterday. SOCIAL HISTORY: . 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 DRUG ALLERGIES: CONTRAST DYE, IODINE DYE, and METOPROLOL. MEDICATIONS: He is currently on albumin 25 grams IV times, heparin subq b.i.d., midodrine 10 mg p.r.n. and predialysis. Calcium acetate 1334 mg with meals, sevelamer 800 mg a.c., iron polysaccharide 150 mg by mouth daily, tramadol 50 mg every 8 hours if needed, insulin detemir and insulin lispro as directed, sublingual p.r.n., multivitamins, p.r.n. promethazine, p.r.n. ondansetron, [address] [address] CONSULTATION Name: FRIDA RICHARDS Room #: 244-P [facility] IN M.R.#: [id number] Admission: 08/30/17 Attend Phys: Shant Walker DO Discharge: Date of : 41 Report #: [id number] p.r.n. bisacodyl, Benadryl if needed. No antibiotics of lately. PHYSICAL EXAMINATION: GENERAL AND VITAL SIGNS: This is a chronically ill-appearing man, edematous with temperature 97.5, pulse 82, respirations 20, BP as low as 71/49, the patient was transferred to the ICU, Levophed was started; O2 saturation 93% on 7 liters nasal oxygen supplementation. HEENT: Head normocephalic, atraumatic. Pupils reactive, status post cataract surgery with lens implants. Mouth, awful hygiene. Dry mucous membrane, some periodontal disease. NECK: Supple. LUNGS: Decreased breath sounds at bases. HEART: S1, S2. No gallop or murmur. ABDOMEN: With ascites and rather abnormal feeling liver that may be cirrhotic in nature. I feel no enlarged spleen. GENITALIA: Deferred. RECTAL: Deferred. EXTREMITIES: Reveal bilateral 3-4+ pitting pretibial edema. NEUROLOGIC: Grossly within normal limits. LABORATORY DATA: Sodium 135, potassium 5.9, BUN 78, creatinine 4.4, glucose 170, SGOT 1343, total bilirubin 2.3, SGPT 1033, alkaline phosphatase 378. Albumin 2.5. Protime 19.8, APTT 36.6. WBC 27,500, hemoglobin 11 g/dL, platelets 162,000. ABGs pending. RADIOLOGY EVALUATION: CT scan of the abdomen and pelvis from [facility] reviewed and revealed possible nodular liver and calcified granulomas in the liver and spleen. I have reviewed these again with radiologist at [facility], Dr. Mendoza and confirms the findings compatible with liver cirrhosis. The chest x-ray from [facility] revealed a questionable lesion on the right lower lung, which I believe may be an artifact and this is again confirmed by Dr. Mendoza. He has bilateral pleural effusion as well as cardiomegaly secondary to pericardial effusion. ASSESSMENT: 1. Persistent leukocytosis of undetermined etiology. 2. Large pericardial effusion. 3. Anasarca. 4. Acute renal failure, on hemodialysis. 5. Possible liver cirrhosis with significantly abnormal liver function tests. 6. Calcified granulomas of the liver and spleen, rule out remote histoplasmosis versus tuberculosis. 7. Hypotension ? shock liver. 8. Severe hypoalbuminemia. 9. Coagulopathy. [facility] [address] [place] [address] CONSULTATION Name: FRIDA RICHARDS Dre Room #: 244-P ADM IN M.R.#: [id number] Admission: 08/30/17 Attend Phys: Shant Walker DO Discharge: Date of : 41 Report #: [id number] SUGGESTIONS: Recommend MRSA screen. Histoplasma urine antigen. Histoplasma antibody. T-SPOT TB test. Oral hygiene. . No indication for antibiotic currently. Dr. Walker, thank you for requesting my suggestions. <ELECTRONICALLY SIGNED> By: Timothy He MD 09/01/17 1008 1247 1359 Timothy He MD /nt
--- NOTE | ~2017-08-30 | EKG ---
[address] [place] [address] ELECTROCARDIOGRAM REPORT Name: MAURICEJOELFRIDA W Room #: 244-P ADM IN M.R.#: [id number] Admission: 08/30/17 Attend Phys: Shant Walker DO Discharge: Date of : 42 Report #: [id number] THIS REPORT FOR: //name// [facility] Test Date: 2017-09-03 Test Time: 08:28:33 Pat Name: FRIDA RICHARDS Department: Room: 244 P Gender: M Route Delivery Supervisor: audie : 1940 Requested By: Nickolas Quevedo Order Number: [id number] MD: Quinton He Measurements Intervals [place] Rate: 104 P: PA: QRS: 43 QRSD: 123 T: -74 QT: 355 QTc: 467 Interpretive Statements Atrial flutter with predominant 2:1 AV block Right bundle branch block Nonspecific T abnormalities, lateral leads Baseline wander in lead(s) V1 Compared to ECG 09/02/2017 06:40:09 2:1 AV block now present T-wave abnormality now present Atrial fibrillation no longer present Electronically Signed On 09-03-2017 8:32:03 [employer]TER[employer]ISE ARCHITECT by Quinton He [email or web address] <ELECTRONICALLY SIGNED> By: Quinton He MD 09/03/17831 7 7 Quinton He MD /EPI
--- NOTE | ~2017-08-30 | HC ---
[facility] [place] [address] CONSULTATION Name: FRIDA RICHARDS Room #: 244-P [facility] IN M.R.#: [id number] Admission: 08/30/17 Attend Phys: Shant Walker DO Discharge: Date of : 42 Report #: [id number] THIS REPORT FOR: //name// CC: Shant Aponte DO DATE OF SERVICE: 08/31/2017 TYPE OF REPORT: Cardiology consultation. HISTORY OF PRESENT ILLNESS: The patient is a 77-year-old white male who I was asked to see in the hospital today after he was found to have a large pericardial effusion. The history is obtained from some old records. There is currently no family members available. The patient is drowsy and barely arousable at this time. He has a long history of supraventricular arrhythmias. He apparently had radiofrequency ablation at [facility] years ago. Previous heart catheterization showed no significant coronary artery disease. Previous echocardiogram showed normal left ventricular function. He is not very active because of his age and has chronic pedal edema. I actually saw him in the Cardiology Clinic in December 2016 when he had no significant complaints. The patient was admitted to [facility] in [place] on August 15. He presented to the Emergency Room not feeling well. He had been placed on Cipro. He had increasing shortness of breath, fever, abdominal pain and confusion. He was found to have evidence of renal failure. He had a temporary dialysis catheter placed and dialysis was started. The patient was noted to have abdominal bloating. He was seen by the GI service. The patient underwent an echocardiogram that showed a large pericardial effusion. There was no evidence of tamponade. Conservative treatment was recommended. The patient was on dialysis recently and had decreased in his mental status. The cause of his renal failure was unclear. The patient was also noted to be hypotensive. The patient was felt to have pneumonia. He developed atrial fibrillation and was placed on digoxin. He was noted to be hypoxic. Because of large pericardial effusion, he was transferred over to [facility] yesterday to undergo placement of pericardial window. When he arrived here, was hypotensive and an echocardiogram showed a large effusion, actually performed percutaneous pericardiocentesis at the bedside with placement of a pericardial drain. He has had almost 700 mL of bloody fluid obtained. The patient has been continued on dialysis. The patient apparently was in sinus rhythm when he arrived here yesterday. However, today, the patient went into atrial fibrillation. I was asked to see him for further evaluation and treatment. PAST MEDICAL HISTORY: Otherwise significant for prostate surgery and hernia repair. He has a history of diabetes, hypertension, non-Hodgkin's lymphoma and prostatism. [address] [address] CONSULTATION Name: FRIDA RICHARDS Dre Room #: 244-P [facility] IN M.R.#: [id number] Admission: 08/30/17 Attend Phys: Shant Walker DO Discharge: Date of : 42 Report #: [id number] MEDICATIONS: His previous medications included aspirin, digoxin, Cardizem-CD, metformin and Flomax. ALLERGIES: He has previous intolerance to METOPROLOL. FAMILY HISTORY: Unknown. SOCIAL HISTORY: He lives in [place], [place]. Nonsmoker. No alcohol abuse. REVIEW OF SYSTEMS: There has been no history of stroke, asthma and peptic ulcer disease. No previous history of kidney disease. PHYSICAL EXAMINATION: GENERAL: Revealed an elderly male, lying in bed. He is arousable to voice. VITAL SIGNS: His blood pressure of 90 systolic, pulse is 80 and irregular and respirations nonlabored. HEENT: He was anicteric. Mucous members are dry. NECK: Veins do not appear distended. CHEST: Clear to auscultation. CARDIAC: Irregular rhythm. ABDOMEN: Soft. EXTREMITIES: Had pitting edema up to mid tibial area. Dorsalis pedis pulse cannot be palpated. SKIN: Cool and dry. RADIOLOGICAL DATA: On the monitor, he appears to be in atrial fibrillation, controlled ventricular response rate. LABORATORY DATA: Additional workup, lab work: Sodium 135, BUN 38 and creatinine 4.4. SGPT 1033, SGOT 1343 and bilirubin 2.3. INR is 2.0. White blood cell count 27,000; hemoglobin 10.8 and platelet count 162,000. IMPRESSION AND RECOMMENDATIONS: 1. Large pericardial effusion. Appears to be bloody. I will check cultures. 2. Atrial fibrillation. The patient has a long history of atrial arrhythmias. At this time, I will attempt to control the rate with digoxin. 3. History of lymphoma. 4. Diabetes. 5. Renal failure. The patient will be dialyzed. 6. Hypertension. Concerned about sepsis. 7. Altered mental status, reason unclear. 8. Edema. <ELECTRONICALLY SIGNED> By: Nickolas Quevedo MD, FACC 09/01/17 1758 1735 [id number] Nickolas Quevedo MD, FACC /nt
--- NOTE | ~2017-08-30 | 2DMMODE ---
[address] [address] 2 D/M-MODE ECHOCARDIOGRAM Name: FRIDA RICHARDS Dre Room #: 244-P ADM IN M.R.#: [id number] Admission: 08/30/17 Attend Phys: Shant Walker, Discharge: Date of : 42 Date of Service: 09/05/17 0914 Report #: [id number] THIS REPORT FOR: //name// APPROVED REPORT Study performed: 09/05/2017 08:13:39 EXAM: Limited 2D Echocardiogram Patient Location: ICU Room #: [facility] Status: routine BSA: 2.21 HR: 60 bpm BP: 95/53 mmHg Other Information Study Quality: Adequate Indications Limited follow up echo for pericardial effusion. Left Ventricle The left ventricle is normal size. Regional wall motion is normal. The left ventricular systolic function is normal. LVEF is 65-70%. Right Ventricle Right ventricle is mild to moderately dilated. The right ventricular systolic function is normal. Aortic Valve Aortic valve is calcified. There is normal aortic valve excursion. Mitral Valve The mitral valve is normal in structure. Mild mitral annular calcification. Tricuspid Valve The tricuspid valve is normal in structure. Great Vessels IVC is dilated and collapses <50% with inspiration. [facility] [address] [place] [address] 2 D/M-MODE ECHOCARDIOGRAM Name: FRIDA RICHARDS Room #: 244-P ADM IN M.R.#: [id number] Admission: 08/30/17 Attend Phys: Shant Walker, Discharge: Date of : 42 Date of Service: 09/05/17913 Report #: [id number] There is no pericardial effusion. Right and left pleural effusions noted. <Conclusion> LVEF is 65-70%. Regional wall motion is normal. Right ventricle is mild to moderately dilated. The right ventricular systolic function is normal. Aortic valve is calcified. IVC is dilated and collapses <50% with inspiration. There is no pericardial effusion. Right and left pleural effusions noted. <ELECTRONICALLY SIGNED> By: Wander Fitzpatrick MD, FACC 09/05/17913 3 3 Wander Fitzpatrick MD, FACC /INF
--- NOTE | ~2017-08-30 | P ---
[facility] [place] [address] PROCEDURE REPORT Name: FRIDA RICHARDS Room #: 217-P [facility] IN M..#: [id number] Admission: 08/30/17 Attend Phys: Shant Walker DO Discharge: 09/19/17 Date of : 42 Report #: [id number] THIS REPORT FOR: //name// CC: Shant Aponte DATE OF SERVICE: 09/09/2017 BRIEF HISTORY: The patient is a 77-year-old male with multiple medical problems, in the Intensive Care Unit with recent pericardial effusion, hypotension, renal failure, and GI bleeding. Upper endoscopy is undertaken to evaluate for blood loss anemia and GI bleeding. PREOPERATIVE DIAGNOSIS: Gastrointestinal bleeding. POSTOPERATIVE DIAGNOSIS: Extensive ulceration esophagus. MEDICATIONS: Deep sedation with propofol and ketamine per anesthesia. SPECIMEN: Biopsy of esophageal ulcers. ESTIMATED BLOOD LOSS: 3 mL. PROCEDURE: EGD with biopsy. FINDINGS: Prior to propofol sedation, procedure of upper endoscopy was discussed with the patient as well as potential risks and its complications. He indicates he understands and desire that we proceed. DESCRIPTION OF PROCEDURE: With the patient in the supine position with his head and chest raised about 30 degrees, the [employer] video endoscope was inserted in the cervical esophagus under direct vision without difficulty. Examination of this organ throughout its entire length revealed extensive ulcerations of the esophagus. I would say that nearly 50% of the esophageal mucosa was ulcerated. The margins of the ulcers were distinct and they had a smooth and benign appearance. They had moderate depth, but not extremely deep. There was no evidence of blood or actively bleeding from the ulceration. Clot or vessels were not seen. Esophageal varices were not seen. The intervening mucosa between the ulcerations was normal. Squamocolumnar junction was actually intact and normal. Hiatus hernia was not seen. Scope was advanced in the stomach, was examined on end view as well as retroflexed views. There was a small amount of liquid in the stomach was aspirated away. Examination of stomach on end view as well as retroflexed views revealed normal mucosa, no ulcerations of bladder mass, lesions and the cardia. The pyloric channel, bulb and ____ sweep down to the third portion was inspected and noted to be unremarkable. At that point, scope was withdrawn and careful circumferential views confirmed the above [facility] [address] [place] [address] PROCEDURE REPORT Name: FRIDA RICHARDS Room #: 217-P [facility] IN [facility]#: [id number] Admission: 08/30/17 Attend Phys: Shant Walker DO Discharge: 09/19/17 Date of : 42 Report #: [id number] finding. Biopsies were obtained of the ulcers. The patient tolerated the procedure well. DISPOSITION: Extensive ulceration of the esophagus. Consider viral etiology. This may be on the basis of ischemia and his acute illness. We will follow up on biopsies and make further recommendations. At this point in time, we will use twice daily proton pump inhibitors. In addition, the patient's Dobbhoff tube was left in place with stiffening wire in place. We will obtain films before resuming tube feedings. <ELECTRONICALLY SIGNED> By: Yeyo Salgado MD 09/23/17 0919 1403 49 Yeyo Salgado MD /nt
[2017-08-30] MEDS ORDERED: TRAMADOL 50 MG50 MG PO (22:40)
[2017-08-30] MEDS ORDERED: TYLENOL325 MG PO (22:41)
[2017-08-30] MEDS ORDERED: TYLENOL EXTRA500 MG PO (22:42)
[2017-08-30] MEDS ORDERED: ASPIRIN325 PO (22:42)
[2017-08-30] MEDS ORDERED: DULCOLAX5 MG PO (22:43)
[2017-08-30] MEDS ORDERED: PHOSLO667 MG PO (22:44)
[2017-08-30] MEDS ORDERED: DIPHENHYDRAMINE25 M3 PO (22:45)
[2017-08-30] MEDS ORDERED: HEPARIN SO5000 UNIT2 SUBQ (22:47)
[2017-08-30] MEDS ORDERED: LEVEMIR SUBQ (22:48)
[2017-08-30] MEDS ORDERED: HUMALOG100 UNIT/2 (22:49)
[2017-08-30] MEDS ORDERED: LEVSIN0.125 MG PO (22:49)
[2017-08-30] MEDS ORDERED: MIFEPREX200 MG PO (22:50)
[2017-08-30] MEDS ORDERED: MELATONIN5 M1 PO (22:50)
[2017-08-30] MEDS ORDERED: HUMALOG100 UNIT/1 SUBQ (22:50)
[2017-08-30] MEDS ORDERED: THERAGRAN-M PR1 EAC1 PO (22:51)
[2017-08-30] MEDS ORDERED: MIDODRINE HCL 55 M1 PO (22:51)
[2017-08-30] MEDS ORDERED: RENVELA800 MG PO (22:52)
[2017-08-30] MEDS ORDERED: ONDANSETRON HCL4 M2 PO (22:52)
[2017-08-30] MEDS ORDERED: PHENERGAN 25 MG25 M1 PO (22:52)
[2017-08-31] VITALS (75 sets, daily range): BP systolic 73–113; BP diastolic 43–69
[2017-08-31 03:20] LABS: HEMATOCRIT 34.4 % (42.0-52.0); MCH 29.2 pg (26.0-34.0); MCHC 31.9 g/dL (28.0-37.0); MCV 91.4 fL (80.0-100.0); RBC 3.76 mil/uL (4.50-6.00); RDW 14.6 % (10.5-14.5); WBC 27.5 thou/uL (4.0-11.0)
[2017-08-31 03:28] LABS: APTT 36.6 Seconds (24.5-32.8); PROTIME 19.8 Seconds (9.3-11.4)
[2017-08-31 03:53] LABS: ALBUMIN 2.5 g/dL (3.4-5.0); CALCIUM 7.7 mg/dL (8.5-10.1); CREATININE 4.4 mg/dL (0.7-1.3); PHOSPHORUS 7.9 mg/dL (2.5-4.9); POTASSIUM 5.9 mmol/L (3.5-5.1); TOTAL BILIRUBIN 2.3 mg/dL (<0.1-1.0); TOTAL PROTEIN 5.6 g/dL (6.4-8.2)
[2017-08-31 13:09] LABS: BE(vivo) -5.7 mmol/L (-2 to +3); HCO3 20.1 mmol/L (22.0-26.0); PCO2 40.7 mmHg (35.0-45.0); PO2 79.4 mmHg (80.0-100.0); pH 7.312 (7.360-7.450); sO2 94.8 % (92.0-98.0)
[2017-08-31 16:14] LABS: HEMATOCRIT 33.4 % (42.0-52.0); HEMOGLOBIN 10.8 gm/dL (14.0-18.0)
[2017-08-31 16:26] LABS: BF NUCLEATED CELLS 2519; BF RBC 581801
[2017-08-31 16:27] LABS: CLARITY TURBID; COLOR RED; TOTAL VOLUME 65 mL
[2017-08-31 17:02] LABS: BE(vivo) -3.5 mmol/L (-2 to +3); HCO3 21.9 mmol/L (22.0-26.0); PCO2 40.7 mmHg (35.0-45.0); PO2 118.1 mmHg (80.0-100.0); pH 7.349 (7.360-7.450); sO2 98.1 % (92.0-98.0)
[2017-08-31 17:20] LABS: BF MACROPHAGE 3; BF NEUTROPHILS 21
[2017-08-31 17:27] LABS: SOURCE PERICARDIAL
[2017-09-01] VITALS (88 sets, daily range): BP systolic 80–122; BP diastolic 42–102
[2017-09-01 05:09] LABS: HEMATOCRIT 34.6 % (42.0-52.0); MCHC 31.8 g/dL (28.0-37.0); MCV 91.1 fL (80.0-100.0); PLATELET COUNT 144 thou/uL (150-400); RBC 3.79 mil/uL (4.50-6.00); RDW 14.5 % (10.5-14.5); WBC 22.9 thou/uL (4.0-11.0)
[2017-09-01 05:16] LABS: CREATININE 4.6 mg/dL (0.7-1.3); POTASSIUM 5.8 mmol/L (3.5-5.1)
[2017-09-01 05:27] LABS: URINE BLOOD 3+ (Negative); URINE CLARITY CLOUDY; URINE GLUCOSE-RANDOM* TRACE (Negative); URINE KETONES TRACE (Negative); URINE LEUKOCYTES 2+ (Negative); URINE NITRITE POSITIVE (Negative); URINE PROTEIN (DIPSTICK) 3+ (Negative); URINE SPECIFIC GRAVITY 1.025 (1.005-1.035)
[2017-09-01 05:45] LABS: URINE PROTEIN-RANDOM* 1937.4 mg/dL (<11.9)
[2017-09-01 05:47] LABS: ICTOTEST (BILI CONFIRMATORY) Negative (Negative); URINE BILIRUBIN NEGATIVE (Negative)
[2017-09-01 05:48] LABS: URINE COLOR RED
[2017-09-01 08:05] LABS: CASTS None Seen /LPF (None Seen); CRYSTALS None Seen /LPF (None Seen); SQUAMOUS None Seen /LPF (0-3); URINE RBC >20 Many /HPF (0-2)
[2017-09-01 08:06] LABS: BACTERIA >30 Many /HPF (None Seen)
[2017-09-01 09:06] LABS: ABSOLUTE NEUTROPHILS 20.8 thou/uL (1.4-8.2); ANISOCYTOSIS 1+; NUCLEATED RBCS 3 /100WBC; POLYCHROMASIA OCCASIONAL
[2017-09-01 10:25] LABS: SOURCE PERICARDIAL
[2017-09-01 11:08] LABS: BODY FLUID PROTEIN 4.3 g/dL (())
[2017-09-02] VITALS (79 sets, daily range): BP systolic 76–120; BP diastolic 39–74
[2017-09-02 05:15] LABS: BE(vivo) 0 mmol/L (-2 to +3); HCO3 25.3 mmol/L (22.0-26.0); PCO2 43.8 mmHg (35.0-45.0); PO2 114.4 mmHg (80.0-100.0); pH 7.379 (7.360-7.450); sO2 98.1 % (92.0-98.0)
[2017-09-02 05:49] LABS: ALBUMIN 2.1 g/dL (3.4-5.0); CALCIUM 6.9 mg/dL (8.5-10.1); CREATININE 3.4 mg/dL (0.7-1.3); DIGOXIN 1.6 ng/mL (0.9-2.0); PHOSPHORUS 4.9 mg/dL (2.5-4.9); POTASSIUM 4.6 mmol/L (3.5-5.1)
[2017-09-02 17:07] LABS: HEPATITIS B SURFACE AG Negative (Negative)
[2017-09-02 17:07] LABS: HISTOPLASMA MYCELIAL-ID Negative (Negative)
[2017-09-02 19:09] LABS: IgA 244 mg/dL (61-437); IgG 796 mg/dL (700-1600); IgM 93 mg/dL (15-143)
[2017-09-03] VITALS (52 sets, daily range): BP systolic 80–122; BP diastolic 39–65
[2017-09-03 05:19] LABS: HEMATOCRIT 29.7 % (42.0-52.0); HEMOGLOBIN 9.7 gm/dL (14.0-18.0); MCH 29.4 pg (26.0-34.0); MCHC 32.8 g/dL (28.0-37.0); MCV 89.7 fL (80.0-100.0); RBC 3.31 mil/uL (4.50-6.00); RDW 14.8 % (10.5-14.5); WBC 10.6 thou/uL (4.0-11.0)
[2017-09-03 05:33] LABS: ALBUMIN 1.8 g/dL (3.4-5.0); CALCIUM 6.7 mg/dL (8.5-10.1); POTASSIUM 4.9 mmol/L (3.5-5.1)
[2017-09-03 05:34] LABS: INR 1.4
[2017-09-03 05:57] LABS: BE(vivo) 1.1 mmol/L (-2 to +3); HCO3 25.7 mmol/L (22.0-26.0); PCO2 40.9 mmHg (35.0-45.0); PO2 83.3 mmHg (80.0-100.0); pH 7.416 (7.360-7.450); sO2 96.4 % (92.0-98.0)
[2017-09-03 06:04] LABS: ABSOLUTE NEUTROPHILS 8.5 thou/uL (1.4-8.2)
[2017-09-03 06:05] LABS: ANISOCYTOSIS 1+; PLATELET COUNT 69 thou/uL (150-400); POLYCHROMASIA 2+
[2017-09-03 18:21] LABS: HEMATOCRIT 27.4 % (42.0-52.0); HEMOGLOBIN 9.3 gm/dL (14.0-18.0)
[2017-09-03 21:09] LABS: COMPLEMENT-C3 68 mg/dL (82-167); COMPLEMENT-C4 21 mg/dL (14-44)
[2017-09-04] VITALS (69 sets, daily range): BP systolic 80–119; BP diastolic 39–67
[2017-09-04 04:57] LABS: HEMOGLOBIN 9.4 gm/dL (14.0-18.0); MCH 29.2 pg (26.0-34.0); MCHC 32.3 g/dL (28.0-37.0); MCV 90.4 fL (80.0-100.0); RBC 3.21 mil/uL (4.50-6.00); RDW 14.9 % (10.5-14.5); WBC 11.2 thou/uL (4.0-11.0)
[2017-09-04 05:28] LABS: ALBUMIN 1.7 g/dL (3.4-5.0); CALCIUM 7.2 mg/dL (8.5-10.1); POTASSIUM 4.1 mmol/L (3.5-5.1); TOTAL BILIRUBIN 0.8 mg/dL (<0.1-1.0); TOTAL PROTEIN 5.1 g/dL (6.4-8.2)
[2017-09-04 05:30] LABS: CREATININE 2.8 mg/dL (0.7-1.3)
[2017-09-05] VITALS (93 sets, daily range): BP systolic 83–124; BP diastolic 35–102
[2017-09-05 04:49] LABS: HEMOGLOBIN 8.5 gm/dL (14.0-18.0); MCHC 32.5 g/dL (28.0-37.0); MCV 89.3 fL (80.0-100.0); RBC 2.91 mil/uL (4.50-6.00); RDW 15.1 % (10.5-14.5); WBC 9.7 thou/uL (4.0-11.0)
[2017-09-05 05:00] LABS: ALBUMIN 1.5 g/dL (3.4-5.0); CALCIUM 6.8 mg/dL (8.5-10.1); CREATININE 3.5 mg/dL (0.7-1.3); PHOSPHORUS 2.8 mg/dL (2.5-4.9); POTASSIUM 3.9 mmol/L (3.5-5.1); TOTAL BILIRUBIN 0.8 mg/dL (<0.1-1.0); TOTAL PROTEIN 4.9 g/dL (6.4-8.2)
[2017-09-05 09:01] LABS: T-SPOT.TB Negative
[2017-09-05 11:09] LABS: GLOBULIN TOTAL 2.4 g/dL (2.2-3.9); M-SPIKE Not Observed g/dL (Not Observed)
[2017-09-05 11:17] LABS: APTT 28.2 Seconds (24.5-32.8); FIBRINOGEN 427.9 mg/dL (210-360); INR 1.1; PROTIME 10.8 Seconds (9.3-11.4)
[2017-09-05 12:45] LABS: ABSOLUTE RETIC COUNT 0.1415 10^6/uL; OBSERVED RETIC COUNT 4.9 % (0.6-2.6)
[2017-09-05 15:09] LABS: KAPPA FREE LIGHT CHAINS 85.9 mg/L (3.3-19.4); KAPPA/LAMBDA RATIO 1.23 (0.26-1.65); LAMBDA FREE LIGHT CHAINS 69.9 mg/L (5.7-26.3)
[2017-09-06] VITALS (97 sets, daily range): BP systolic 88–135; BP diastolic 37–76
[2017-09-06 05:26] LABS: HEMATOCRIT 25.4 % (42.0-52.0); HEMOGLOBIN 8.2 gm/dL (14.0-18.0); MCH 29.3 pg (26.0-34.0); MCHC 32.3 g/dL (28.0-37.0); MCV 90.6 fL (80.0-100.0); PLATELET COUNT 93 thou/uL (150-400); RBC 2.81 mil/uL (4.50-6.00); RDW 14.9 % (10.5-14.5); WBC 9.2 thou/uL (4.0-11.0)
[2017-09-06 05:38] LABS: ALBUMIN 1.6 g/dL (3.4-5.0); CALCIUM 7.3 mg/dL (8.5-10.1); POTASSIUM 4.2 mmol/L (3.5-5.1); TOTAL BILIRUBIN 0.7 mg/dL (<0.1-1.0); TOTAL PROTEIN 5.1 g/dL (6.4-8.2)
[2017-09-06 05:39] LABS: CREATININE 2.3 mg/dL (0.7-1.3)
[2017-09-06 05:48] LABS: APTT 28.1 Seconds (24.5-32.8); PROTIME 10.7 Seconds (9.3-11.4)
[2017-09-06 05:57] LABS: ABSOLUTE NEUTROPHILS 6.5 thou/uL (1.4-8.2); NUCLEATED RBCS 1 /100WBC; PLATELET ESTIMATE DECREASED
[2017-09-06 10:07] LABS: ANA INTERPRETATION Negative (Negative)
[2017-09-06 11:53] LABS: CLARITY CLEAR; COLOR YELLOW; SOURCE THORACENTESIS; TOTAL VOLUME 35 mL
[2017-09-06 12:41] LABS: BF NUCLEATED CELLS 172; BF RBC 1089
[2017-09-06 13:09] LABS: BF MACROPHAGE 52; BF NEUTROPHILS 10
[2017-09-06 16:13] LABS: SOURCE THORACENTESIS
[2017-09-07] VITALS (94 sets, daily range): BP systolic 87–166; BP diastolic 43–80
[2017-09-07 05:19] LABS: HEMATOCRIT 25.4 % (42.0-52.0); HEMOGLOBIN 8.2 gm/dL (14.0-18.0); MCH 28.8 pg (26.0-34.0); MCHC 32.2 g/dL (28.0-37.0); MCV 89.6 fL (80.0-100.0); PLATELET COUNT 121 thou/uL (150-400); RBC 2.83 mil/uL (4.50-6.00); RDW 15.3 % (10.5-14.5); WBC 10.2 thou/uL (4.0-11.0)
[2017-09-07 05:39] LABS: ALBUMIN 1.5 g/dL (3.4-5.0); CALCIUM 7.1 mg/dL (8.5-10.1); CREATININE 1.7 mg/dL (0.7-1.3); POTASSIUM 4.4 mmol/L (3.5-5.1); TOTAL BILIRUBIN 0.6 mg/dL (<0.1-1.0); TOTAL PROTEIN 5.2 g/dL (6.4-8.2)
[2017-09-07 06:49] LABS: ABSOLUTE NEUTROPHILS 6.4 thou/uL (1.4-8.2); METAMYELOCYTES 1 %; MYELOCYTES 1 %; NUCLEATED RBCS 1 /100WBC
[2017-09-07 06:54] LABS: ANISOCYTOSIS 1+; POLYCHROMASIA OCCASIONAL
[2017-09-07 16:11] LABS: BODY FLUID ALBUMIN 0.9 g/dL (()); BODY FLUID AMYLASE 10 U/L (()); BODY FLUID GLUCOSE 181 mg/dL (()); BODY FLUID LDH 105 IU/L (()); BODY FLUID PROTEIN 1.5 g/dL (())
[2017-09-07 20:10] LABS: GLOMERULR BASEM MEMBRN AB 4 units (0-20)
[2017-09-08] VITALS (82 sets, daily range): BP systolic 83–121; BP diastolic 40–84
[2017-09-08 06:25] LABS: HEMOGLOBIN 7.5 gm/dL (14.0-18.0); MCH 29.1 pg (26.0-34.0); MCHC 32.7 g/dL (28.0-37.0); PLATELET COUNT 155 thou/uL (150-400); RBC 2.58 mil/uL (4.50-6.00); RDW 15.2 % (10.5-14.5)
[2017-09-08 06:40] LABS: ALBUMIN 1.4 g/dL (3.4-5.0); CALCIUM 7.3 mg/dL (8.5-10.1); POTASSIUM 4.3 mmol/L (3.5-5.1); TOTAL BILIRUBIN 0.7 mg/dL (<0.1-1.0)
[2017-09-08 06:47] LABS: CREATININE 2.8 mg/dL (0.7-1.3)
[2017-09-08 08:19] LABS: ABSOLUTE NEUTROPHILS 7.8 thou/uL (1.4-8.2); ANISOCYTOSIS 1+; METAMYELOCYTES 1 %; MYELOCYTES 1 %
[2017-09-08 08:20] LABS: POLYCHROMASIA OCCASIONAL
[2017-09-08 16:00] LABS: HEMATOCRIT 22.6 % (42.0-52.0); HEMOGLOBIN 7.4 gm/dL (14.0-18.0)
[2017-09-09] VITALS (61 sets, daily range): BP systolic 81–124; BP diastolic 38–78
[2017-09-09 05:08] LABS: HEMOGLOBIN 7.1 gm/dL (14.0-18.0)
[2017-09-09 05:20] LABS: ALBUMIN 1.4 g/dL (3.4-5.0); CALCIUM 7.5 mg/dL (8.5-10.1); CREATININE 1.8 mg/dL (0.7-1.3); PHOSPHORUS 1.7 mg/dL (2.5-4.9); POTASSIUM 3.5 mmol/L (3.5-5.1)
[2017-09-10] VITALS (55 sets, daily range): BP systolic 79–124; BP diastolic 38–71
[2017-09-10 05:01] LABS: HEMATOCRIT 24.4 % (42.0-52.0); HEMOGLOBIN 8.1 gm/dL (14.0-18.0); MCH 29.1 pg (26.0-34.0); MCHC 33.2 g/dL (28.0-37.0); MCV 87.6 fL (80.0-100.0); PLATELET COUNT 214 thou/uL (150-400); RBC 2.79 mil/uL (4.50-6.00); RDW 14.7 % (10.5-14.5); WBC 12.7 thou/uL (4.0-11.0)
[2017-09-10 05:35] LABS: ALBUMIN 1.4 g/dL (3.4-5.0); CALCIUM 7.2 mg/dL (8.5-10.1); CREATININE 2.7 mg/dL (0.7-1.3); POTASSIUM 3.9 mmol/L (3.5-5.1)
[2017-09-10 08:15] LABS: ABSOLUTE NEUTROPHILS 10.9 thou/uL (1.4-8.2); NUCLEATED RBCS 2 /100WBC
[2017-09-10 08:16] LABS: ANISOCYTOSIS 2+; POLYCHROMASIA SLIGHT
[2017-09-11] VITALS (25 sets, daily range): BP systolic 91–127; BP diastolic 46–68
[2017-09-11 06:48] LABS: HEMATOCRIT 23.6 % (42.0-52.0); HEMOGLOBIN 7.7 gm/dL (14.0-18.0); MCH 28.7 pg (26.0-34.0); MCHC 32.8 g/dL (28.0-37.0); MCV 87.5 fL (80.0-100.0); PLATELET COUNT 213 thou/uL (150-400); RDW 15.4 % (10.5-14.5); WBC 14.1 thou/uL (4.0-11.0)
[2017-09-11 07:06] LABS: ALBUMIN 1.4 g/dL (3.4-5.0); CALCIUM 7.2 mg/dL (8.5-10.1); PHOSPHORUS 2.5 mg/dL (2.5-4.9); POTASSIUM 3.5 mmol/L (3.5-5.1)
[2017-09-11 07:32] LABS: ABSOLUTE NEUTROPHILS 11.4 thou/uL (1.4-8.2); PLATELET ESTIMATE NORMAL
[2017-09-12] VITALS (25 sets, daily range): BP systolic 97–119; BP diastolic 46–67
[2017-09-12 05:08] LABS: HEMATOCRIT 23.2 % (42.0-52.0); HEMOGLOBIN 7.5 gm/dL (14.0-18.0); MCH 28.9 pg (26.0-34.0); MCHC 32.5 g/dL (28.0-37.0); MCV 89.2 fL (80.0-100.0); PLATELET COUNT 216 thou/uL (150-400); RBC 2.61 mil/uL (4.50-6.00); RDW 15.4 % (10.5-14.5); WBC 14.8 thou/uL (4.0-11.0)
[2017-09-12 05:22] LABS: ALBUMIN 1.4 g/dL (3.4-5.0); CALCIUM 7.2 mg/dL (8.5-10.1); CREATININE 2.9 mg/dL (0.7-1.3); POTASSIUM 3.4 mmol/L (3.5-5.1); TOTAL BILIRUBIN 0.4 mg/dL (<0.1-1.0); TOTAL PROTEIN 5.2 g/dL (6.4-8.2)
[2017-09-12 10:24] LABS: ABSOLUTE NEUTROPHILS 13.3 thou/uL (1.4-8.2); NUCLEATED RBCS 2 /100WBC
[2017-09-12 10:25] LABS: ANISOCYTOSIS SLIGHT; HYPOCHROMASIA SLIGHT; POIKILOCYTOSIS SLIGHT; POLYCHROMASIA SLIGHT
[2017-09-13] VITALS (121 sets, daily range): BP systolic 74–122; BP diastolic 36–68
[2017-09-13 04:48] LABS: ALBUMIN 1.4 g/dL (3.4-5.0); CALCIUM 7.1 mg/dL (8.5-10.1); CREATININE 3.7 mg/dL (0.7-1.3); DIGOXIN 1.4 ng/mL (0.9-2.0); PHOSPHORUS 3.1 mg/dL (2.5-4.9); POTASSIUM 3.6 mmol/L (3.5-5.1)
[2017-09-13 16:07] LABS: MCH 28.6 pg (26.0-34.0); MCHC 32.1 g/dL (28.0-37.0); MCV 88.9 fL (80.0-100.0); RBC 1.79 mil/uL (4.50-6.00); RDW 15.6 % (10.5-14.5); WBC 16.8 thou/uL (4.0-11.0)
[2017-09-13 16:12] LABS: HEMATOCRIT 15.9 % (42.0-52.0); HEMOGLOBIN 5.1 gm/dL (14.0-18.0)
[2017-09-14] VITALS (96 sets, daily range): BP systolic 85–154; BP diastolic 41–125
[2017-09-14 02:37] LABS: HEMATOCRIT 21.2 % (42.0-52.0); MCH 29.5 pg (26.0-34.0); MCHC 33.1 g/dL (28.0-37.0); MCV 89.2 fL (80.0-100.0); PLATELET COUNT 183 thou/uL (150-400); RBC 2.37 mil/uL (4.50-6.00); RDW 14.9 % (10.5-14.5); WBC 15.1 thou/uL (4.0-11.0)
[2017-09-14 02:43] LABS: CALCIUM 7.5 mg/dL (8.5-10.1); CREATININE 2.8 mg/dL (0.7-1.3); POTASSIUM 3.7 mmol/L (3.5-5.1)
[2017-09-14 04:31] LABS: ABSOLUTE NEUTROPHILS 12.4 thou/uL (1.4-8.2); METAMYELOCYTES 1 %; MYELOCYTES 1 %
[2017-09-14 04:32] LABS: LARGE PLATELETS FEW
[2017-09-14 08:17] LABS: HEMATOCRIT 22.9 % (42.0-52.0)
[2017-09-14 08:19] LABS: HEMOGLOBIN 7.8 gm/dL (14.0-18.0)
[2017-09-14 12:41] LABS: HEMOGLOBIN 7.4 gm/dL (14.0-18.0)
[2017-09-15] VITALS (79 sets, daily range): BP systolic 76–132; BP diastolic 34–94
[2017-09-15 05:13] LABS: ALBUMIN 1.4 g/dL (3.4-5.0); CALCIUM 7.5 mg/dL (8.5-10.1); CREATININE 3.6 mg/dL (0.7-1.3); MAGNESIUM 2.1 mg/dL (1.8-2.4); POTASSIUM 3.8 mmol/L (3.5-5.1); TOTAL BILIRUBIN 0.6 mg/dL (<0.1-1.0); TOTAL PROTEIN 4.5 g/dL (6.4-8.2)
[2017-09-15 05:16] LABS: HEMOGLOBIN 5.7 gm/dL (14.0-18.0)
[2017-09-15 20:30] LABS: HEMATOCRIT 21.2 % (42.0-52.0); HEMOGLOBIN 7.2 gm/dL (14.0-18.0)
[2017-09-16] VITALS (33 sets, daily range): BP systolic 96–136; BP diastolic 38–76
[2017-09-16 04:38] LABS: RDW 16.7 % (10.5-14.5); WBC 13.7 thou/uL (4.0-11.0)
[2017-09-16 04:42] LABS: MCH 29.9 pg (26.0-34.0); MCHC 34.5 g/dL (28.0-37.0); MCV 86.5 fL (80.0-100.0); RBC 2.12 mil/uL (4.50-6.00)
[2017-09-16 04:47] LABS: HEMATOCRIT 18.3 % (42.0-52.0); HEMOGLOBIN 6.3 gm/dL (14.0-18.0)
[2017-09-16 05:30] LABS: ALBUMIN 1.8 g/dL (3.4-5.0); CALCIUM 7.6 mg/dL (8.5-10.1); CREATININE 2.2 mg/dL (0.7-1.3); DIGOXIN 1.2 ng/mL (0.9-2.0); POTASSIUM 3.6 mmol/L (3.5-5.1)
[2017-09-17] VITALS (37 sets, daily range): BP systolic 106–135; BP diastolic 56–72
[2017-09-17 03:34] LABS: HEMATOCRIT 24.4 % (42.0-52.0); MCV 88.3 fL (80.0-100.0); PLATELET COUNT 194 thou/uL (150-400); RBC 2.77 mil/uL (4.50-6.00); RDW 15.8 % (10.5-14.5); WBC 12.4 thou/uL (4.0-11.0)
[2017-09-17 03:46] LABS: ALBUMIN 1.7 g/dL (3.4-5.0); CALCIUM 7.4 mg/dL (8.5-10.1); CREATININE 2.7 mg/dL (0.7-1.3); MAGNESIUM 2.1 mg/dL (1.8-2.4); PHOSPHORUS 3.9 mg/dL (2.5-4.9); TOTAL BILIRUBIN 0.6 mg/dL (<0.1-1.0); TOTAL PROTEIN 4.8 g/dL (6.4-8.2)
[2017-09-17 04:01] LABS: HEMOGLOBIN 8.3 gm/dL (14.0-18.0)
[2017-09-17 05:47] LABS: ABSOLUTE NEUTROPHILS 10.5 thou/uL (1.4-8.2); ANISOCYTOSIS SLIGHT; NUCLEATED RBCS 1 /100WBC
[2017-09-18 04:30] VITALS: BP 134/69
[2017-09-18 06:26] LABS: BASOPHILS 0.4 % (0.0-2.0); HEMATOCRIT 23.4 % (42.0-52.0); HEMOGLOBIN 7.9 gm/dL (14.0-18.0); LYMPHOCYTES 6.3 % (24.0-44.0); MCH 30.2 pg (26.0-34.0); MCHC 33.8 g/dL (28.0-37.0); MCV 89.4 fL (80.0-100.0); MONOCYTES 9.3 % (1.0-8.0); PLATELET COUNT 181 thou/uL (150-400); RBC 2.62 mil/uL (4.50-6.00); RDW 15.9 % (10.5-14.5); WBC 11.9 thou/uL (4.0-11.0)
[2017-09-18 06:38] LABS: CALCIUM 7.6 mg/dL (8.5-10.1); CREATININE 2.2 mg/dL (0.7-1.3); PHOSPHORUS 2.9 mg/dL (2.5-4.9); POTASSIUM 4.4 mmol/L (3.5-5.1)
[2017-09-18 07:45] VITALS: BP 124/56
[2017-09-18 11:10] VITALS: BP 131/65
[2017-09-18 15:23] VITALS: BP 131/70
[2017-09-18 20:00] VITALS: BP 141/67
[2017-09-19 00:28] VITALS: BP 135/72
[2017-09-19 04:30] VITALS: BP 122/65
[2017-09-19 04:54] LABS: ABSOLUTE NEUTROPHILS 11.1 thou/uL (1.4-8.2); BASOPHILS 0.2 % (0.0-2.0); EOSINOPHILS 0.1 % (0.0-3.0); HEMATOCRIT 22.8 % (42.0-52.0); HEMOGLOBIN 7.6 gm/dL (14.0-18.0); LYMPHOCYTES 4.9 % (24.0-44.0); MCHC 33.2 g/dL (28.0-37.0); MCV 90.4 fL (80.0-100.0); MONOCYTES 9.1 % (1.0-8.0); PLATELET COUNT 193 thou/uL (150-400); POLYS 85.7 % (36.0-66.0); RBC 2.52 mil/uL (4.50-6.00); RDW 16.4 % (10.5-14.5); WBC 12.9 thou/uL (4.0-11.0)
[2017-09-19 05:20] LABS: CALCIUM 7.7 mg/dL (8.5-10.1); CREATININE 2.8 mg/dL (0.7-1.3); PHOSPHORUS 3.7 mg/dL (2.5-4.9); POTASSIUM 4.4 mmol/L (3.5-5.1)
[2017-09-19 07:50] VITALS: BP 134/70
[2017-09-19 11:10] VITALS: BP 153/72
[2017-09-19] MEDS ORDERED: ALBUTEROL2.5 MG/0.5 INH ×2 (11:26)
[2017-09-19] MEDS ORDERED: NYSTATIN100000 UNI SWISH&SPIT (11:26)
[2017-09-19] MEDS ORDERED: FLOMAX0.4 MG PO (11:26)
[2017-09-19] MEDS ORDERED: DIGOXIN250 MCG/1 IV PUSH (11:26)
[2017-09-19] MEDS ORDERED: Protonix 40 MG VIAL IV PUSH (11:26)
[2017-09-19] MEDS ORDERED: TRAMADOL 50 MG50 MG PO (11:37)
== END 2017-09-19 15:37 | DRG 853 ==
LOC: 2N 17:55 → ICU 08-31 10:46 → 2N 09-17 19:52
PROVIDERS: Family Medicine; Hospitalist; Internal Medicine; Internal Medicine Cardiovascular Disease; Internal Medicine Gastroenterology; Internal Medicine Hematology & Oncology; Internal Medicine Infectious Disease; Internal Medicine Pulmonary Disease; Nurse Practitioner; Nurse Practitioner Family; Radiology Diagnostic Radiology; Specialist; Thoracic Surgery (Cardiothoracic Vascular Surgery)
PROC: 0W9D30Z Drainage of Pericardial Cavity with Drainage Device, Percutaneous Approach (ICD-10-PCS; principal; 2017-08-31)
PROC: 5A1D70Z Performance of Urinary Filtration, Intermittent, Less than 6 Hours Per Day (ICD-10-PCS; 2017-08-31)
PROC: 05HM33Z Insertion of Infusion Device into Right Internal Jugular Vein, Percutaneous Approach (ICD-10-PCS; 2017-09-01)
PROC: 05PYX3Z Removal of Infusion Device from Upper Vein, External Approach (ICD-10-PCS; 2017-09-01)
PROC: B5131ZA Fluoroscopy of Right Jugular Veins using Low Osmolar Contrast, Guidance (ICD-10-PCS; 2017-09-01)
PROC: 5A1D70Z Performance of Urinary Filtration, Intermittent, Less than 6 Hours Per Day (ICD-10-PCS; 2017-09-01)
PROC: B548ZZA Ultrasonography of Superior Vena Cava, Guidance (ICD-10-PCS; 2017-09-03)
PROC: 02HV33Z Insertion of Infusion Device into Superior Vena Cava, Percutaneous Approach (ICD-10-PCS; 2017-09-03)
PROC: B5181ZA Fluoroscopy of Superior Vena Cava using Low Osmolar Contrast, Guidance (ICD-10-PCS; 2017-09-03)
PROC: 5A1D90Z Performance of Urinary Filtration, Continuous, Greater than 18 hours Per Day (ICD-10-PCS; 2017-09-05)
PROC: 0W993ZZ Drainage of Right Pleural Cavity, Percutaneous Approach (ICD-10-PCS; 2017-09-06)
PROC: 5A1D90Z Performance of Urinary Filtration, Continuous, Greater than 18 hours Per Day (ICD-10-PCS; 2017-09-08)
PROC: 0DB58ZX Excision of Esophagus, Via Natural or Artificial Opening Endoscopic, Diagnostic (ICD-10-PCS; 2017-09-09)
PROC: 30243N1 Transfusion of Nonautologous Red Blood Cells into Central Vein, Percutaneous Approach (ICD-10-PCS; 2017-09-09)
PROC: 5A1D90Z Performance of Urinary Filtration, Continuous, Greater than 18 hours Per Day (ICD-10-PCS; 2017-09-10)
PROC: 0W3P8ZZ Control Bleeding in Gastrointestinal Tract, Via Natural or Artificial Opening Endoscopic (ICD-10-PCS; 2017-09-13)
PROC: 5A1D70Z Performance of Urinary Filtration, Intermittent, Less than 6 Hours Per Day (ICD-10-PCS; 2017-09-13)
PROC: 3E0436Z Introduction of Nutritional Substance into Central Vein, Percutaneous Approach (ICD-10-PCS; 2017-09-14)
PROC: 5A1D70Z Performance of Urinary Filtration, Intermittent, Less than 6 Hours Per Day (ICD-10-PCS; 2017-09-15)
PROC: 04L33DZ Occlusion of Hepatic Artery with Intraluminal Device, Percutaneous Approach (ICD-10-PCS; 2017-09-16)
DX: A41.9 Sepsis, unspecified organism (principal); G93.41 Metabolic encephalopathy; N17.0 Acute kidney failure with tubular necrosis; K72.00 Acute and subacute hepatic failure without coma; K22.11 Ulcer of esophagus with bleeding; E43 Unspecified severe protein-calorie malnutrition; J96.01 Acute respiratory failure with hypoxia; R57.0 Cardiogenic shock; J69.0 Pneumonitis due to inhalation of food and vomit; K26.4 Chronic or unspecified duodenal ulcer with hemorrhage; I31.3 Pericardial effusion (noninflammatory); D68.9 Coagulation defect, unspecified; G82.20 Paraplegia, unspecified; I50.20 Unspecified systolic (congestive) heart failure; K92.1 Melena; E87.5 Hyperkalemia; N40.0 Benign prostatic hyperplasia without lower urinary tract symptoms; M19.90 Unspecified osteoarthritis, unspecified site; D64.9 Anemia, unspecified; D69.6 Thrombocytopenia, unspecified; I48.2 Chronic atrial fibrillation; E11.42 Type 2 diabetes mellitus with diabetic polyneuropathy; K21.0 Gastro-esophageal reflux disease with esophagitis; Z96.1 Presence of intraocular lens; I35.0 Nonrheumatic aortic (valve) stenosis; R65.20 Severe sepsis without septic shock; I11.0 Hypertensive heart disease with heart failure; K80.20 Calculus of gallbladder without cholecystitis without obstruction; R74.0 Nonspecific elevation of levels of transaminase and lactic acid dehydrogenase [LDH]; Z88.8 Allergy status to other drugs, medicaments and biological substances; Z85.72 Personal history of non-Hodgkin lymphomas; Z90.49 Acquired absence of other specified parts of digestive tract; Z90.3 Acquired absence of stomach [part of]; Z91.041 Radiographic dye allergy status; Z68.26 Body mass index [BMI] 26.0-26.9, adult; Z85.828 Personal history of other malignant neoplasm of skin; Z98.42 Cataract extraction status, left eye; Z98.41 Cataract extraction status, right eye
CPT/HCPCS: 10078; 10081; 27000; 32100; 32110

== ENCOUNTER → 2017-10-07 | Outpatient (CLI) | payer OTHER, BC ==
[~2017-10-07] MED LIST: ALBUTEROL2.5 MG/0.5 INH; ASPIRIN325 PO; DIGOXIN250 MCG/1 IV PUSH; DIPHENHYDRAMINE25 M3 PO; DULCOLAX5 MG PO; FLOMAX0.4 MG PO; HEPARIN SO5000 UNIT2 SUBQ; HUMALOG100 UNIT/1 SUBQ; HUMALOG100 UNIT/2; LEVEMIR SUBQ; LEVSIN0.125 MG PO; MELATONIN5 M1 PO; MIDODRINE HCL 55 M1 PO; MIFEPREX200 MG PO; NYSTATIN100000 UNI SWISH&SPIT; ONDANSETRON HCL4 M2 PO; PHENERGAN 25 MG25 M1 PO; PHOSLO667 MG PO; Protonix 40 MG VIAL IV PUSH; RENVELA800 MG PO; THERAGRAN-M PR1 EAC1 PO; TRAMADOL 50 MG50 MG PO; TYLENOL EXTRA500 MG PO; TYLENOL325 MG PO
[2017-10-07 08:41] VITALS: BP 116/75
== END | disposition home or self-care (01) ==
LOC: SPEC 08:33 → SPEECH 08:33 → SPEC 10:06
DX: Z45.2 Encounter for adjustment and management of vascular access device (principal); R47.02 Dysphasia